=== PATIENT | male | born 1950 | race Caucasian/White ===

== ENCOUNTER 2021-03-11 07:47 | Inpatient (IN) ==
[2021-03-11 08:31] LABS: Basophils % 0.1 % (0.0-0.8); Eosinophils % 0.6 % (0.00-10.9); Hematocrit 46.4 VOL% (42.0-52.0); Hemoglobin 14.8 GM/DL (14.0-18.0); Immature Granulocytes % 0.3 %; Immature Granulocytes Absolute 0.02 #; Lymphocytes # 2.1 10*3/uL (1.4-4.0); Lymphocytes % 30.5 % (21.2-54.2); Mean Corpuscular HGB Conc 31.9 GM/DL (32-36); Mean Corpuscular Volume 90.3 FL (87-102); Mean Platelet Volume 9.7 FL (9.6-12.0); Monocytes % 7.9 % (1.7-12.7); Neutrophils % 60.6 % (38.7-73.9); Platelet Count 145 T/CUMM (130-400); Red Blood Count 5.14 MC/CUMM (3.8-5.5); Red Cell Distribution Width 13.4 % (9.3-17.3); White Blood Count 6.8 T/CUMM (4-12)
[2021-03-11 08:44] LABS: PT Patient Result 11.1 SECS (10.5-12.0); Partial Thromboplastin Time 29.6 SECS (23.9-33.8)
[2021-03-11 08:54] LABS: Albumin 3.7 G/DL (3.4-5.0); Bilirubin,Total 0.8 MG/DL (0.20-1.00); Calcium 8.9 MG/DL (8.5-10.1); Osmolality,Calculated 278.5 MOS/KG (273-304); Potassium 4.5 MMOL/L (3.5-5.1); Total Protein 7.3 G/DL (6.4-8.2)
[2021-03-11] MEDS ORDERED: GLUCAGON 1 MG VIAL IM PRN (10:17)
[2021-03-11] MEDS ORDERED: ONDANSETRON 4 MG/2 ML VIAL IV PRN (10:17)
[2021-03-11] MEDS ORDERED: DEXTROSE 50% 25 GM/50 ML VIAL IV PRN (10:17)
[2021-03-11] MEDS: ACETAMINOPHEN 325 MG TABLET PO PRN ×2 (14:08→18:17)
[2021-03-11] MEDS: CLOPIDOGREL 75 MG TABLET PO SCH (15:08)
[2021-03-11] MEDS: PRAMIPEXOLE 1 MG TABLET PO SCH ×2 (16:21→21:17)
[2021-03-11] MEDS: SIMVASTATIN 40 MG TABLET PO SCH (21:16)
[2021-03-12 04:21] LABS: Basophils % 0.3 % (0.0-0.8); Eosinophils # 0.1 10*3/uL (0.0-0.87); Eosinophils % 1.3 % (0.00-10.9); Hematocrit 43.4 VOL% (42.0-52.0); Hemoglobin 13.8 GM/DL (14.0-18.0); Immature Granulocytes % 0.5 %; Immature Granulocytes Absolute 0.03 #; Lymphocytes # 1.9 10*3/uL (1.4-4.0); Lymphocytes % 30.4 % (21.2-54.2); Mean Corpuscular HGB Conc 31.8 GM/DL (32-36); Mean Platelet Volume 9.9 FL (9.6-12.0); Monocytes % 8.9 % (1.7-12.7); Neutrophils % 58.6 % (38.7-73.9); Platelet Count 137 T/CUMM (130-400); Red Blood Count 4.77 MC/CUMM (3.8-5.5); Red Cell Distribution Width 13.2 % (9.3-17.3); White Blood Count 6.2 T/CUMM (4-12)
[2021-03-12 04:38] LABS: Hypochromasia 1+; Microcytosis 1+; Platelet Estimate Adequate
[2021-03-12 04:55] LABS: Albumin 3.2 G/DL (3.4-5.0); Bilirubin,Total 0.5 MG/DL (0.20-1.00); Calcium 8.8 MG/DL (8.5-10.1); Osmolality,Calculated 278.8 MOS/KG (273-304); Potassium 4.4 MMOL/L (3.5-5.1); Risk Ratio 3.79; Total Protein 6.6 G/DL (6.4-8.2); VLDL Cholesterol 24.6 MG/DL
[2021-03-12] MEDS: LEVOTHYROXINE 137 MCG TABLET PO SCH (06:11)
[2021-03-12] MEDS: ASPIRIN CHEW 81 MG TABLET PO SCH (09:31)
[2021-03-12] MEDS: CLOPIDOGREL 75 MG TABLET PO SCH (09:32)
[2021-03-12] MEDS: ESCITALOPRAM 10 MG TABLET PO SCH (09:32)
[2021-03-12] MEDS: PANTOPRAZOLE 40 MG TABLET PO SCH (09:32)
[2021-03-12] MEDS: PRAMIPEXOLE 1 MG TABLET PO SCH ×3 (09:32→21:47)
[2021-03-12] MEDS: ACETAMINOPHEN 325 MG TABLET PO PRN (14:20)
[2021-03-12] MEDS: SIMVASTATIN 40 MG TABLET PO SCH (21:47)
[2021-03-13 05:33] LABS: Calcium 8.7 MG/DL (8.5-10.1); Osmolality,Calculated 279.5 MOS/KG (273-304); Potassium 4.1 MMOL/L (3.5-5.1)
[2021-03-13] MEDS: LEVOTHYROXINE 137 MCG TABLET PO SCH (05:53)
[2021-03-13] MEDS: PRAMIPEXOLE 1 MG TABLET PO SCH ×3 (09:10→21:09)
[2021-03-13] MEDS: ESCITALOPRAM 10 MG TABLET PO SCH (09:11)
[2021-03-13] MEDS: ACETAMINOPHEN 325 MG TABLET PO PRN (09:11)
[2021-03-13] MEDS: CLOPIDOGREL 75 MG TABLET PO SCH (09:11)
[2021-03-13] MEDS: PANTOPRAZOLE 40 MG TABLET PO SCH (09:11)
[2021-03-13] MEDS: ASPIRIN CHEW 81 MG TABLET PO SCH (09:11)
[2021-03-13] MEDS: SIMVASTATIN 40 MG TABLET PO SCH (21:10)
[2021-03-14] MEDS: LEVOTHYROXINE 137 MCG TABLET PO SCH (05:53)
[2021-03-14] MEDS: PANTOPRAZOLE 40 MG TABLET PO SCH (09:44)
[2021-03-14] MEDS: ASPIRIN CHEW 81 MG TABLET PO SCH (09:45)
[2021-03-14] MEDS: CLOPIDOGREL 75 MG TABLET PO SCH (09:45)
[2021-03-14] MEDS: ESCITALOPRAM 10 MG TABLET PO SCH (09:45)
[2021-03-14] MEDS: PRAMIPEXOLE 1 MG TABLET PO SCH ×3 (09:50→21:19)
[2021-03-14] MEDS: POLYETHYLENE GLYCOL POWDER 17 GM PACK PO SCH (10:53)
[2021-03-14] MEDS: ACETAMINOPHEN 325 MG TABLET PO PRN (10:58)
[2021-03-14] MEDS: SIMVASTATIN 40 MG TABLET PO SCH (21:18)
[2021-03-15] MEDS: LEVOTHYROXINE 137 MCG TABLET PO SCH (06:40)
[2021-03-15] MEDS: ESCITALOPRAM 10 MG TABLET PO SCH (09:54)
[2021-03-15] MEDS: CLOPIDOGREL 75 MG TABLET PO SCH (09:54)
[2021-03-15] MEDS: ASPIRIN CHEW 81 MG TABLET PO SCH (09:54)
[2021-03-15] MEDS: PRAMIPEXOLE 1 MG TABLET PO SCH (09:54)
[2021-03-15] MEDS: ACETAMINOPHEN 325 MG TABLET PO PRN (09:55)
[2021-03-15] MEDS: POLYETHYLENE GLYCOL POWDER 17 GM PACK PO SCH (09:55)
[2021-03-15] MEDS: PANTOPRAZOLE 40 MG TABLET PO SCH (09:55)
[2021-03-15 13:14] VITALS: BP 128/94
== END 2021-03-15 18:10 | disposition home health service (06) | DRG 68 ==
LOC: N.ED 07:47 → SUATTDRO 10:17 → N.EDINP 10:17 → N.4E 15:37
PROVIDERS: ADMIT Internal Medicine; ATTEND Internal Medicine